=== PATIENT | female | born 1970 | race Hispanic/Latino ===

== ENCOUNTER 2016-07-18 09:32 | Inpatient (IN) | payer OTHER ==
[2016-07-18] MEDS: Lactated Ringer's 1,000 ML IV SCH ×2 (11:00→23:35)
[2016-07-18] MEDS ORDERED: Penicillin G 5 Million Unit Vial IVPB ONE (11:12)
[2016-07-18 11:13] VITALS: BP 149/72; PULSE 85; RESP 20; TEMP 98.3; O2SAT 99
[2016-07-18 11:22] LABS: BASO # 0.1 K/uL (0.0-0.2); BASO % 0.6 % (0.0-2.0); EOS # 0.2 K/uL (0.0-0.7); EOS % 2.4 % (0.0-4.0); HEMATOCRIT 37.9 % (34.0-47.0); LYMPH # 1.3 K/uL (1.0-4.3); LYMPH % 13.8 % (20.0-40.0); MEAN CORPUSCULAR HEMOGLOBIN 33.5 pg (27.0-31.0); MEAN CORPUSCULAR HGB CONC 34.9 g/dL (33.0-37.0); MEAN PLATELET VOLUME 8.7 fl (7.2-11.7); MONO # 0.5 K/uL (0.0-0.8); MONO % 5.1 % (0.0-10.0); NEUT # 7.3 K/uL (1.8-7.0); NEUT % 78.1 % (50.0-75.0); RED CELL DISTRIBUTION WIDTH 13.8 % (11.5-14.5); WHITE BLOOD COUNT 9.4 K/uL (4.8-10.8)
--- NOTE | 2016-07-18 11:22 | OBADHP ---
Datetime: 07/18/2016 11:16 Admit Comment, IP Provider: 46 yo at 37+1 wks w/ PROM GBS positive, will start PCN for prophylaxis Will start induction w/ cervidil H_P dictated, "[id number]" Extremities - PN: Normal Abdomen - PN: Normal Neurologic - PN: Normal General - PN: Normal FHR - Baseline A Provider: 130 Amniotic Fluid Color, Provider: Clear Membranes, Provider: Ruptured Pool Provider: Positive Nitrazine Provider: Positive IP Chief Complaint: Suspected ruptured membranes NICHD Variability Prov Fetus A: Moderate 6-25bpm NICHD Accel Fetus A IP Provider: 15X15 FHR Category Provider Fetus A: Category I NICHD Decel Fetus A IP Provider: None Dilatation, Provider: 1 Effacement, Provider: 60 Station, Provider: -1 Genitourinary Exam: Normal EGA AdmitDate IP: 37.0 IP Adm Impression: Term, intrauterine IP Admit Plan: Initiate labor induction protocol
--- NOTE | 2016-07-18 13:51 | HP ---
HISTORY OF PRESENT ILLNESS: This is a 46-year-old [id number] at 37 weeks and 1 day who reports leaking of clear fluid at 7:36 a.m., reports that it woke her out of her sleep. She denies contractions and reports a positive pink discharge with wiping and positive movement. The patient received her care with Dr. Nassar with [facility]. This is complicated by the fact that she has a history of hypertension, on losartan in the past. The medication was stopped when she was . She has been on baby aspirin during this . She is advanced maternal age. She had a echo done that was normal on 05/25/2016. She is rubella negative. The plan is for her to receive an MMR vaccine . She is Rh negative. She received RhoGAM on 05/21/2016. She had a positive first trimester screen for Down syndrome, but her Panorama was low risk. The patient had genetic counseling and declined an amniocentesis. She also has a suspected succenturiate lobe noted on 05/05/2016 ultrasound and she is GBS positive, done on 07/13/2016. PAST MEDICAL HISTORY: History of hypertension. PAST SURGICAL HISTORY: In 2007, she had breast implants. In 1979, she had an open appendectomy. In 06/2009, she had an operative laparoscopy, left ovarian cystectomy and a right salpingostomy with lysis of adhesions. MEDICATIONS: vitamins and aspirin 81 mg. ALLERGIES: No known drug allergies. PAST OBSTETRICAL HISTORY: In 2010, she had a miscarriage. In 04/2015, she had a chemical . PAST GYNECOLOGICAL HISTORY: She has regular periods every 25 days. She denies any history of any STDs or any abnormal Pap smears. FAMILY HISTORY: Maternal grandmother was diagnosed with diabetes and her mother has hypertension. SOCIAL HISTORY: The patient denies tobacco, alcohol, and illicit drug use. LABORATORIES: Blood type O negative, antibody screen negative. Pap smear negative. HPV negative. Hemoglobin electrophoresis is normal. Gonorrhea and chlamydia were negative. TSH was 0.74. RPR was nonreactive. Rubella was negative. HIV negative. Hepatitis B surface antigen negative. Her SMA was negative. Fragile X negative. Cystic fibrosis was negative. Maternal serum alpha fetoprotein was negative. On 05/18/2016, her 1-hour Glucola was 129, her RPR is nonreactive, HIV negative and on 07/13/2016, her group B strep was positive. First trimester screen was increased risk for Down syndrome. Panorama was low risk. PHYSICAL EXAMINATION: VITAL SIGNS: Afebrile. Vital signs stable. GENERAL: The patient appears anxious and teary in bed. ABDOMEN: Soft, NT, gravid EXTREMITIES: NT SPECULUM: Positive pooling. nitrazine positive VAGINAL EXAM: /- at 10:43 am EXTERNAL MONITORING: Baseline is in the 130s with moderate variability and positive accelerations. Tocodynamometer is quiet. ASSESSMENT AND PLAN: This is a 46-year-old V2R2-6-7-1 at 37 weeks and 1 day with premature rupture of membranes, group B Strep positive, heart tracing reassuring. Will start induction with Cervidil and will start penicillin for group B Strep prophylaxis. Yuliet Nassar MD cc: [id number] TT: 07/18/2016 13:50:40 en MTDD
[2016-07-18] MEDS ORDERED: Nalbuphine 20 mg/ml Inj (1 ml) IVP PRN (21:08)
--- NOTE | 2016-07-18 23:45 | OBPN ---
Datetime: 07/18/2016 23:37 IP Progress Impression: Normal progression of labor IP Procedures: Sterile Vag Exam IP Progress Plan: Anesthesia consult Membranes, Provider: Ruptured Amniotic Fluid Color, Provider: Clear FHR - Baseline A Provider: 120s IP Progress Note Comment: 46 yo at 37+1 wks w/ PROM, s/p cervidil FHT reassuring, GBS positive, PCN for GBS prophylaxis Will order epidural Vital Signs Provider: Reviewed NICHD Accel Fetus A IP Provider: 15X15 FHR Category Provider Fetus A: Category I NICHD Variability Prov Fetus A: Moderate 6-25bpm Dilatation, Provider: 4 Effacement, Provider: 90 Station, Provider: -1 NICHD Decel Fetus A IP Provider: None Datetime: 07/18/2016 11:16 Pool Provider: Positive Nitrazine Provider: Positive
[2016-07-19] MEDS ORDERED: Lactated Ringer's 1,000 ML IV SCH
[2016-07-19] MEDS ORDERED: Fentanyl/Bupivacaine HCl 250 ML EPI ONE (00:28)
--- NOTE | 2016-07-19 05:28 | OBPN ---
Datetime: 07/19/2016 05:24 IP Progress Impression: Normal progression of labor IP Procedures: Sterile Vag Exam IP Progress Plan: Augmentation Membranes, Provider: Ruptured Amniotic Fluid Color, Provider: Clear FHR - Baseline A Provider: 130 IP Progress Note Comment: 46 yo at 37+2 wks w/ PROM, sp cervidil FHT reassuring, PCN for GBS prophylaxis Will start pitocin NICHD Accel Fetus A IP Provider: 15X15 FHR Category Provider Fetus A: Category I NICHD Variability Prov Fetus A: Moderate 6-25bpm Dilatation, Provider: 8 Effacement, Provider: 100 Station, Provider: -1 NICHD Decel Fetus A IP Provider: None
[2016-07-19] MEDS ORDERED: Oxytocin 30 units/LR 500ML 500 ML IV SCH ×2 (05:45→06:00)
[2016-07-19] MEDS: Lactated Ringer's 1,000 ML IV SCH (08:25)
[2016-07-19] MEDS ORDERED: Lidocaine 1% Inj (20ml) ONE (10:03)
--- NOTE | 2016-07-19 10:57 | OBPN ---
Datetime: 07/19/2016 09:52 IP Progress Impression: Normal progression of labor IP Informed Consent Obtain: Vaginal Delivery IP Procedures: Sterile Vag Exam IP Progress Plan: Continue present management Membranes, Provider: Ruptured Contraction Comments Provider: q 4 mins FHR - Baseline A Provider: 140 IP Progress Note Comment: Patient evaluated, comfortable VE=9/100/0 PDL=455 mod [place], +accels, no decels TOCO= ctxning q 4 mins, Pit @ 4 mu/min A/P 1. Patient evaluated, comfortable. Now 9cm. Continue Pitocin 2. CEFM and TOCO 3. Re-evaluate as needed Vital Signs Provider: Reviewed; Within Normal Limits NICHD Accel Fetus A IP Provider: 15X15 NICHD Variability Prov Fetus A: Moderate 6-25bpm Dilatation, Provider: 9 Effacement, Provider: 100 Station, Provider: 0
--- NOTE | 2016-07-19 12:01 | OBPPN ---
Datetime: 07/19/2016 11:55 PP Pain Prov: Within normal limits PP Nausea Prov: Denies PP Flatus Prov: Yes PP Breasts Prov: Normal PP Heart Prov: Normal PP Lungs Prov: Normal PP Abdomen/Uterus Prov: Normal PP Lochia Prov: Normal PP Vulva/Perineum Prov: Normal PP CVA Tenderness Prov: Normal PP Extremities Prov: Normal PP Impression Prov: Normal progression PP Plan Prov: Continue present management; Discharge PP Progress Note Prov: Patient denies CP, no SOB, no N/V, tolerating PO diet, voiding well, mild loc hia, ambulating/voiding well, abdominal pain tolerable with meds, +flatus, +BM, pt able to ambulate w ith minimum difficulty, has some decreased sensation A/P POD #4 1. Waiting for neuro consultation and then patient to be discharged 2. Discharge instructions reviewed with patient 3. Discharge patient IP PP Procedures: None Vital Signs Provider PP: Reviewed; Within Normal Limits
--- NOTE | 2016-07-19 12:03 | OBDCSUM ---
Datetime: 07/19/2016 11:59 Discharged to, Provider: Home Disch Instr Activity: Normal activity Disch Instr Diet: Regular Discharge Instructions, Provider: Routine instructions given Discharge Time: 07/19/2016 11:59 Disch Referrals: None Contraception discussed, Prov: No
[2016-07-19] MEDS ORDERED: Oxytocin 30 units/LR 500ML 500 ML IV ONE (15:00)
--- NOTE | 2016-07-19 15:26 | OBDS ---
MATERNAL INFORMATION Delivery Anesthesia: Epidural Provider Comments: of live male infant over intact perineum in ERROL 6 lbs 8 oz, 9/9, nuchal cord x 1 loose, followed by shoulders and rest of atraumatically, mouth and nose suctioned, cord c lamped and cut, cord blood obtained, placenta delivered spontaneously, fundus firm, vaginal laceratio ns repaired with 2-0 vicryl rapide, EBL = 100mL, pt otherwise tolerated procedure well LABOR SUMMARY EDC: 08/08/2016 00:00 No. Babies in Womb: 1 Attempted: No Labor Anesthesia: Epidural LABOR INFORMATION Cervical Ripening Agents: Cervidil (Annotations: Cervidil Out ) Oxytocin: Augmentation Group B Beta Strep: Positive Steroids Given: None Reason Steroids Not Administered: Not Applicable MEMBRANES Membranes Rupture Method: Spontaneous Rupture of Membranes: 07/18/2016 07:30 Amniotic Fluid Color: Clear Amniotic Fluid Amount: Small Amniotic Fluid Odor: Normal INFANT INFORMATION BABY A Gestational Age at Delivery: 37.2 IDENTIFICATION/MEDS BABY A ID Band Number: [id number]
[2016-07-19] MEDS ORDERED: Oxycodone/Acetaminophen 5/325 mg Tab PO PRN ×4 (15:29→17:36)
[2016-07-19] MEDS ORDERED: Benzocaine/Menthol SPRAY TOP PRN ×2 (15:29→17:36)
[2016-07-20 07:06] LABS: BASO # 0.1 K/uL (0.0-0.2); BASO % 0.6 % (0.0-2.0); EOS # 0.2 K/uL (0.0-0.7); HEMATOCRIT 35.2 % (34.0-47.0); LYMPH # 1.9 K/uL (1.0-4.3); LYMPH % 14.9 % (20.0-40.0); MEAN CELL VOLUME 96.5 fl (81.0-99.0); MEAN CORPUSCULAR HEMOGLOBIN 33.3 pg (27.0-31.0); MEAN CORPUSCULAR HGB CONC 34.6 g/dL (33.0-37.0); MEAN PLATELET VOLUME 9.1 fl (7.2-11.7); MONO # 0.8 K/uL (0.0-0.8); MONO % 6.6 % (0.0-10.0); NEUT # 9.4 K/uL (1.8-7.0); NEUT % 75.9 % (50.0-75.0); RED CELL DISTRIBUTION WIDTH 13.7 % (11.5-14.5); WHITE BLOOD COUNT 12.4 K/uL (4.8-10.8)
[2016-07-20] MEDS: Multivitamin With Minerals Tab PO SCH (08:42)
[2016-07-20] MEDS ORDERED: Multivitamin With Minerals Tab PO SCH (09:00)
--- NOTE | 2016-07-21 06:27 | OBPPN ---
Datetime: 07/20/2016 20:00 PP Pain Prov: Within normal limits PP Nausea Prov: Denies PP Flatus Prov: Yes PP BM Prov: Yes PP Breasts Prov: Normal PP Heart Prov: Normal PP Lungs Prov: Normal PP Abdomen/Uterus Prov: Normal PP Lochia Prov: Normal PP Vulva/Perineum Prov: Normal PP CVA Tenderness Prov: Normal PP Extremities Prov: Normal PP Impression Prov: Normal progression PP Plan Prov: Continue present management PP Progress Note Prov: Late entry - pt seen Jul 20 20:00pm (circ done) H/H Rh neg Rubella NonImmune A; S/P day 1 PLAN: anticiapte discharge tmrw rhogam and MMR proior to discharge Vital Signs Provider PP: Reviewed; Within Normal Limits
[2016-07-21] MEDS ORDERED: Measles, Mumps, and Rubella 1 EA VIAL SC ONE (08:00)
[2016-07-21] MEDS: Multivitamin With Minerals Tab PO SCH (08:17)
--- NOTE | 2016-07-21 11:11 | OBDCSUM ---
Datetime: 07/21/2016 11:09 Discharged to, Provider: Home Follow up at, Provider: Maady Uriostegui Instr Activity: Normal activity Disch Instr Diet: Regular Discharge Instructions, Provider: Routine instructions given Discharge Diagnosis, Provider: Term Delivered Follow up in weeks, Provider: 6 weeks Disch Referrals: None Contraception discussed, Prov: Yes Disch Activity Restrictions: Nothing in vagina - Hugh[place], tampons, douche Discharge Comment, Provider: atient doing well reports minimal lochia cramps well controlled with Mo cathy voided without difficulty Vital signs stable afebrile Uterus firm below the umbilicus Extremities no Homans day 2 Offered MMR patient declines Patient follow-up with Dr. Purdy in 4-6 weeks Nothing per vagina Contraception after Delivery: Undecided Datetime: 07/19/2016 11:59 Discharge Comment, Provider: atient doing well reports minimal lochia cramps well controlled with Mo cathy voided without difficulty Vital signs stable afebrile Uterus firm below the umbilicus Extremities no Homans day 2 Offered MMR patient declines Patient follow-up with Dr. Purdy in 4-6 weeks Nothing per vagina
--- NOTE | 2016-07-21 11:11 | OBPPN ---
Datetime: 07/21/2016 11:07 PP Pain Prov: Within normal limits PP Nausea Prov: Denies PP Flatus Prov: Yes PP Breasts Prov: Not Done PP Heart Prov: Normal PP Lungs Prov: Normal PP Abdomen/Uterus Prov: Normal PP Lochia Prov: Not Done PP Vulva/Perineum Prov: Not Done PP CVA Tenderness Prov: Normal PP Extremities Prov: Normal PP Progress Prov: Normal PP Impression Prov: Normal progression PP Plan Prov: Discharge PP Progress Note Prov: day #2 Patient doing well reports minimal lochia cramps well controlled with Motrin voided without diffic ulty Vital signs stable afebrile Uterus firm below the umbilicus Extremities no Homans day 2 Offered MMR patient declines Patient follow-up with Dr. Purdy in 4-6 weeks Nothing per vagina Vital Signs Provider PP: Reviewed
== END 2016-07-21 22:20 | disposition home or self-care (01) | DRG 372 ==
LOC: H.EROB2 09:32 → H.L&D 10:53 → H.OB/GYN 07-19 17:17
PROVIDERS: ADMIT Obstetrics & Gynecology; ATTEND Obstetrics & Gynecology
PROC: 4A1HXCZ Monitoring of Products of Conception, Cardiac Rate, External Approach (ICD-10-PCS; 2016-07-18)
PROC: 10E0XZZ Delivery of Products of Conception, External Approach (ICD-10-PCS; principal; 2016-07-19)
PROC: 0UQGXZZ Repair Vagina, External Approach (ICD-10-PCS; 2016-07-19)
DX: O16.4 Unspecified maternal hypertension, complicating childbirth (principal); O71.4 Obstetric high vaginal laceration alone; O99.824 Streptococcus B carrier state complicating childbirth; Z37.0 Single live birth; Z3A.37 37 weeks gestation of pregnancy; O09.513 Supervision of elderly primigravida, third trimester; O69.81X0 Labor and delivery complicated by cord around neck, without compression, not applicable or unspecified; O42.92 Full-term premature rupture of membranes, unspecified as to length of time between rupture and onset of labor; Z79.899 Other long term (current) drug therapy; Z98.82 Breast implant status; Z83.3 Family history of diabetes mellitus; Z82.49 Family history of ischemic heart disease and other diseases of the circulatory system